=== PATIENT | female | born 1985 | race American Indian/Alaskan Native ===

== ENCOUNTER 2017-12-09 12:09 | Outpatient (CLI) | payer MEDICARE ==
[2017-12-09 13:01] LABS: Free T4 (Free Thyroxine) 1.53 ng/dL (0.76-1.46)
== END 2017-12-09 12:10 | disposition home or self-care (01) ==
LOC: LAB 12:09
PROVIDERS: ATTEND Internal Medicine
DX: E03.9 Hypothyroidism, unspecified (principal); I10 Essential (primary) hypertension
CPT/HCPCS: 36415; 84439; 84443

== ENCOUNTER 2018-07-05 08:43 | Outpatient (CLI) | payer MEDICARE ==
[2018-07-05 09:14] LABS: Basophils # (Auto) 0.1 K/mm3 (0.0-0.1); Basophils % (Auto) 0.8 % (0.0-1.8); Eosinophils # (Auto) 0.1 K/mm3 (0.0-0.4); Eosinophils % (Auto) 0.7 % (0.0-4.3); Hematocrit 33.1 % (30.3-42.9); Hemoglobin 10.9 gm/dl (10.1-14.3); Lymphocytes # (Auto) 1.7 K/mm3 (1.2-5.4); Lymphocytes % (Auto) 22.8 % (13.4-35.0); Mean Corpuscular HGB Conc 33 % (30-34); Mean Corpuscular Volume 90 fl (79-97); Monocytes % (Auto) 13.2 % (0.0-7.3); Platelet Count 265 K/mm3 (140-440); Red Blood Count 3.69 M/mm3 (3.65-5.03); Red Cell Distribution Width 15.3 % (13.2-15.2)
[2018-07-05 09:29] LABS: Albumin 3.5 g/dL (3.9-5); Calcium 8.3 mg/dL (8.4-10.2)
[2018-07-05 09:46] LABS: Free T4 (Free Thyroxine) 1.09 ng/dL (0.76-1.46)
[2018-07-05 11:08] LABS: Creatinine,Urine 130.5 mg/dL (0.1-20.0); Protein/Creatinine Ratio,Urine 0.15
== END 2018-07-05 08:44 | disposition home or self-care (01) ==
LOC: LAB 08:43
PROVIDERS: ATTEND Internal Medicine
DX: I10 Essential (primary) hypertension (principal); D63.1 Anemia in chronic kidney disease; E66.9 Obesity, unspecified; E03.9 Hypothyroidism, unspecified; Z94.0 Kidney transplant status; Z71.3 Dietary counseling and surveillance
CPT/HCPCS: 36415; 80053; 80197; 82570; 84156; 84439; 84443; 85025

== ENCOUNTER 2018-10-12 08:44 | Outpatient (CLI) | payer MEDICARE ==
[2018-10-12 09:21] LABS: Basophils % (Auto) 0.5 % (0.0-1.8); Eosinophils # (Auto) 0.1 K/mm3 (0.0-0.4); Eosinophils % (Auto) 1.1 % (0.0-4.3); Hematocrit 33.8 % (30.3-42.9); Hemoglobin 11.3 gm/dl (10.1-14.3); Lymphocytes # (Auto) 1.8 K/mm3 (1.2-5.4); Lymphocytes % (Auto) 27.2 % (13.4-35.0); Mean Corpuscular HGB Conc 33 % (30-34); Mean Corpuscular Volume 91 fl (79-97); Monocytes # (Auto) 0.5 K/mm3 (0.0-0.8); Monocytes % (Auto) 7.8 % (0.0-7.3); Platelet Count 220 K/mm3 (140-440); Red Cell Distribution Width 14.7 % (13.2-15.2)
[2018-10-12 09:33] LABS: Bilirubin,Urine NEG (Negative); Blood,Urine NEG (Negative); Color,Urine Yellow (Yellow); Mucus,Urine FEW /HPF; Protein,Urine <15 mg/dL mg/dL (Negative); Urobilinogen,Urine < 2.0 mg/dL (<2.0)
[2018-10-12 09:43] LABS: Alanine Aminotransferase 9 units/L (7-56); Albumin 3.6 g/dL (3.9-5); BUN/Creatinine Ratio 10; Blood Urea Nitrogen 12 mg/dL (7-17); Calcium 8.1 mg/dL (8.4-10.2); Hemolysis Index 4
== END 2018-10-12 08:45 | disposition home or self-care (01) ==
LOC: LAB 08:44
DX: E55.9 Vitamin D deficiency, unspecified (principal); I10 Essential (primary) hypertension; Z94.0 Kidney transplant status; Z79.899 Other long term (current) drug therapy
CPT/HCPCS: 36415; 80053; 80197; 81001; 82306; 83036; 83690; 83970; 85025

== ENCOUNTER 2018-11-24 08:36 | Outpatient (CLI) | payer MEDICARE ==
[2018-11-24 08:54] LABS: Basophils % (Auto) 0.6 % (0.0-1.8); Eosinophils # (Auto) 0.1 K/mm3 (0.0-0.4); Eosinophils % (Auto) 1.4 % (0.0-4.3); Hematocrit 34.4 % (30.3-42.9); Hemoglobin 11.5 gm/dl (10.1-14.3); Lymphocytes # (Auto) 2.3 K/mm3 (1.2-5.4); Lymphocytes % (Auto) 36.9 % (13.4-35.0); Mean Corpuscular HGB Conc 34 % (30-34); Mean Corpuscular Volume 91 fl (79-97); Monocytes # (Auto) 0.5 K/mm3 (0.0-0.8); Monocytes % (Auto) 8.1 % (0.0-7.3); Platelet Count 277 K/mm3 (140-440); Red Blood Count 3.77 M/mm3 (3.65-5.03); Red Cell Distribution Width 14.7 % (13.2-15.2)
[2018-11-24 09:19] LABS: Alanine Aminotransferase 12 units/L (7-56); Albumin 3.6 g/dL (3.9-5); BUN/Creatinine Ratio 9; Blood Urea Nitrogen 11 mg/dL (7-17); Chol/HDL Ratio 2.58 %; HDL Cholesterol 60 mg/dL (40-59); Hemolysis Index 63; LDL Cholesterol,Direct 86 mg/dL (50-130)
[2018-11-24 09:49] LABS: Creatinine,Urine 54.7 mg/dL (0.1-20.0)
[2018-11-24 09:54] LABS: Protein/Creatinine Ratio,Urine 0.07
== END 2018-11-24 08:37 | disposition home or self-care (01) ==
LOC: LAB 08:36
PROVIDERS: ATTEND Internal Medicine
DX: I10 Essential (primary) hypertension (principal); E66.9 Obesity, unspecified; D63.1 Anemia in chronic kidney disease; Z94.0 Kidney transplant status; Z71.3 Dietary counseling and surveillance
CPT/HCPCS: 36415; 80053; 80061; 80197; 82570; 84156; 85025

== ENCOUNTER 2019-02-22 08:20 | Outpatient (CLI) | payer MEDICARE ==
[2019-02-22 08:52] LABS: Basophils # (Auto) 0.1 K/mm3 (0.0-0.1); Basophils % (Auto) 0.9 % (0.0-1.8); Eosinophils # (Auto) 0.1 K/mm3 (0.0-0.4); Eosinophils % (Auto) 0.8 % (0.0-4.3); Hematocrit 35.1 % (30.3-42.9); Hemoglobin 11.7 gm/dl (10.1-14.3); Lymphocytes # (Auto) 2.5 K/mm3 (1.2-5.4); Lymphocytes % (Auto) 32.8 % (13.4-35.0); Mean Corpuscular HGB Conc 33 % (30-34); Mean Corpuscular Volume 90 fl (79-97); Monocytes # (Auto) 0.5 K/mm3 (0.0-0.8); Monocytes % (Auto) 6.4 % (0.0-7.3); Platelet Count 235 K/mm3 (140-440); Red Cell Distribution Width 14.6 % (13.2-15.2)
[2019-02-22 09:11] LABS: Albumin 3.8 g/dL (3.9-5); Calcium 8.1 mg/dL (8.4-10.2)
[2019-02-22 09:18] LABS: Free T4 (Free Thyroxine) 1.35 ng/dL (0.76-1.46)
[2019-02-22 12:33] LABS: Creatinine,Urine 108.3 mg/dL (0.1-20.0); Protein/Creatinine Ratio,Urine 0.06
== END 2019-02-22 08:21 | disposition home or self-care (01) ==
LOC: LAB 08:20
PROVIDERS: ATTEND Internal Medicine
DX: E03.9 Hypothyroidism, unspecified (principal); I10 Essential (primary) hypertension; D63.1 Anemia in chronic kidney disease; Z71.3 Dietary counseling and surveillance; E66.9 Obesity, unspecified; Z94.0 Kidney transplant status
CPT/HCPCS: 36415; 80053; 80197; 82570; 84156; 84439; 84443; 85025

== ENCOUNTER 2019-07-13 08:24 | Outpatient (CLI) | payer MEDICARE ==
[2019-07-13 08:53] LABS: Basophils # (Auto) 0.1 K/mm3 (0.0-0.1); Basophils % (Auto) 0.8 % (0.0-1.8); Eosinophils # (Auto) 0.1 K/mm3 (0.0-0.4); Eosinophils % (Auto) 1.6 % (0.0-4.3); Hematocrit 33.5 % (30.3-42.9); Lymphocytes # (Auto) 2.5 K/mm3 (1.2-5.4); Lymphocytes % (Auto) 35.3 % (13.4-35.0); Mean Corpuscular HGB Conc 33 % (30-34); Mean Corpuscular Volume 90 fl (79-97); Monocytes # (Auto) 0.5 K/mm3 (0.0-0.8); Monocytes % (Auto) 6.7 % (0.0-7.3); Platelet Count 252 K/mm3 (140-440); Red Blood Count 3.74 M/mm3 (3.65-5.03); Red Cell Distribution Width 14.9 % (13.2-15.2)
[2019-07-13 09:17] LABS: Albumin 3.7 g/dL (3.9-5); Calcium 8.5 mg/dL (8.4-10.2)
== END 2019-07-13 08:25 | disposition home or self-care (01) ==
LOC: LAB 08:24
PROVIDERS: ATTEND Internal Medicine
DX: I10 Essential (primary) hypertension (principal); D63.1 Anemia in chronic kidney disease; E66.9 Obesity, unspecified; Z71.3 Dietary counseling and surveillance; Z94.0 Kidney transplant status
CPT/HCPCS: 36415; 80053; 80197; 85025

== ENCOUNTER 2019-10-06 09:10 | Outpatient (CLI) | payer MEDICARE ==
[2019-10-06 09:54] LABS: Basophils # (Auto) 0.1 K/mm3 (0.0-0.1); Basophils % (Auto) 0.9 % (0.0-1.8); Bilirubin,Urine NEG (Negative); Blood,Urine NEG (Negative); Color,Urine Straw (Yellow); Eosinophils # (Auto) 0.1 K/mm3 (0.0-0.4); Eosinophils % (Auto) 0.9 % (0.0-4.3); Hematocrit 32.1 % (30.3-42.9); Hemoglobin 11.1 gm/dl (10.1-14.3); Lymphocytes # (Auto) 1.3 K/mm3 (1.2-5.4); Mean Corpuscular HGB Conc 35 % (30-34); Mean Corpuscular Volume 90 fl (79-97); Monocytes # (Auto) 0.5 K/mm3 (0.0-0.8); Monocytes % (Auto) 6.5 % (0.0-7.3); Mucus,Urine FEW /HPF; Platelet Count 251 K/mm3 (140-440); Protein,Urine <15 mg/dL mg/dL (Negative); Red Blood Count 3.57 M/mm3 (3.65-5.03); Red Cell Distribution Width 15.2 % (13.2-15.2); Urobilinogen,Urine < 2.0 mg/dL (<2.0)
[2019-10-06 10:13] LABS: Albumin 3.8 g/dL (3.9-5); Calcium 8.4 mg/dL (8.4-10.2); Chol/HDL Ratio 2.35 %; Uric Acid 6.3 mg/dL (3.5-7.6)
[2019-10-08 11:34] LABS: Vitamin D, 25-OH, D2 16 ng/mL
== END 2019-10-06 09:11 | disposition home or self-care (01) ==
LOC: LAB 09:10
DX: N25.89 Other disorders resulting from impaired renal tubular function (principal); Z79.899 Other long term (current) drug therapy; Z94.0 Kidney transplant status; Z94.83 Pancreas transplant status
CPT/HCPCS: 36415; 80048; 80061; 80197; 81001; 82040; 82306; 83036; 83735; 83970; 84100; 84550; 85025